=== PATIENT | female | born 1995 | race Two or more races ===

== ENCOUNTER 2021-03-03 08:00 | Outpatient (CLI) | payer OTHER | END 2021-03-03 08:30 | disposition home or self-care (01) | LOC: PPH VACUNA 08:00 | PROVIDERS: ATTEND Emergency Medicine Pediatric Emergency Medicine | DX: Z23 Encounter for immunization (principal) ==

== ENCOUNTER 2022-06-11 11:09 | Emergency (ER) | payer OTHER ==
[~2022-06-11] VITALS: Ht 149.9 cm; Wt 57.6 kg
== END 2022-06-11 14:42 | disposition home or self-care (01) ==
LOC: ER 11:09
DX: M54.2 Cervicalgia (principal); V49.9XXA Car occupant (driver) (passenger) injured in unspecified traffic accident, initial encounter; Y92.413 State road as the place of occurrence of the external cause; Z91.018 Allergy to other foods

== ENCOUNTER → 2023-09-30 09:16 | Outpatient (CLI) | payer OTHER | END | disposition home or self-care (01) | LOC: PRENATAL 09:16 | PROVIDERS: ATTEND Obstetrics & Gynecology Maternal & Fetal Medicine | DX: O36.80X0 Pregnancy with inconclusive fetal viability, not applicable or unspecified (principal); Z36.82 Encounter for antenatal screening for nuchal translucency ==

== ENCOUNTER → 2023-11-12 08:04 | Outpatient (CLI) | payer OTHER | END | disposition home or self-care (01) | LOC: PRENATAL 08:04 | PROVIDERS: ATTEND Obstetrics & Gynecology Maternal & Fetal Medicine | DX: O35.3XX0 Maternal care for (suspected) damage to fetus from viral disease in mother, not applicable or unspecified (principal); O44.00 Complete placenta previa NOS or without hemorrhage, unspecified trimester; Z3A.19 19 weeks gestation of pregnancy ==

== ENCOUNTER → 2024-02-10 09:06 | Outpatient (CLI) | payer OTHER | END | disposition home or self-care (01) | LOC: PRENATAL 09:06 | PROVIDERS: ATTEND Obstetrics & Gynecology Maternal & Fetal Medicine | DX: O26.849 Uterine size-date discrepancy, unspecified trimester (principal); O36.8199 Decreased fetal movements, unspecified trimester, other fetus; Z3A.32 32 weeks gestation of pregnancy ==

== ENCOUNTER 2024-03-24 03:50 | Inpatient (IN) | payer OTHER ==
[~2024-03-24] VITALS: Ht 149.9 cm; Wt 2.7 kg
[2024-03-24 03:37] VITALS: BP 122/76
[2024-03-24] MEDS ORDERED: AMPICILLIN SODIUM 2,000 MG VIAL IV ONE (04:00)
[2024-03-24] MEDS ORDERED: AMPICILLIN SODIUM 1,000 MG VIAL IV SCH (04:00)
[2024-03-24] MEDS ORDERED: RINGERS SOLUTION,LACTATED 1,000 ML IV SCH ×2 (04:00→18:00)
[2024-03-24 04:33] LABS: HEMATOCRIT 35.5 % (36.0-45.00); HEMOGLOBIN 12.1 g/dL (12.0-15.00); MEAN CORPUSCULAR HEMOGLOBIN 29.6 pg (27.00-32.0); PLATELET COUNT 277 K/uL (150-450); RED BLOOD COUNT 4.08 M/uL (4.00-6.00); RED CELL DISTRIBUTION WIDTH 14.3 % (11.5-14.5)
[2024-03-24 04:35] LABS: URINE CAST 13.98 uL (0.0-1.40); URINE EPITHELIAL CELLS 107.6 uL (0.0-38.8); URINE RBC 1635.9 uL (0.0-20.8); URINE WBC 2005.4 uL (0.0-23.2)
[2024-03-24 04:37] LABS: URINE APPEARANCE Turbid; URINE BILIRRUBIN Negative (NEGATIVE); URINE BLOOD Large; URINE COLOR Yellow; URINE GLUCOSE Negative (NEGATIVE); URINE KETONE Negative (NEGATIVE); URINE LEUKOCYTE Large; URINE NITRATE Negative; URINE UROBILINOGEN 0.2 E.U./dl
[2024-03-24] MEDS ORDERED: PRENATAL TABLE1 EAC4 PO (04:45)
[2024-03-24 04:49] LABS: INR < 0.93; PARTIAL THROMBOPLASTIN TIME 23.9 SECONDS (22.0-34.0); PROTHROMBIN TIME 9.8 SECONDS (9.0-11.5); URINE BACTERIA > 9821.5 uL (0.0-1933); URINE CRYSTALS MODERATE /HPF; URINE PROTEIN 100 (NEGATIVE)
[2024-03-24 04:57] LABS: ALBUMIN 2.8 gm/dL (3.4-5.0); BILIRUBIN TOTAL 0.35 mg/dL (0.3-1.2); CALCIUM 9.1 mg/dL (8.5-10.1); CREATININE SERUM 0.63 mg/dL (0.55-1.02); GFR 113.35; GLOBULINA 3.6 G/DL (2.4-3.5); POTASSIUM 4.43 mEq/L (3.5-5.1); TOTAL PROTEIN 6.4 gm/dL (6.4-8.2)
[2024-03-24 07:39] VITALS: BP 121/74
[2024-03-24] MEDS ORDERED: MISOPROSTOL 25 MCG/4 ML GEL.W.APPL ONE (07:40)
[2024-03-24] MEDS ORDERED: MORPHINE SULFATE 4 MG/ML CARTRIDGE IV ONE (09:45)
[2024-03-24] MEDS ORDERED: MISOPROSTOL 25 MCG/4 ML GEL.W.APPL VAG ONE (09:45)
[2024-03-24 11:04] VITALS: BP 127/74
[2024-03-24] MEDS ORDERED: OXYTOCIN 500 ML IV SCH (13:45)
[2024-03-24 15:22] VITALS: BP 129/65
[2024-03-24] MEDS ORDERED: CEFAZOLIN SODIUM 1,000 MG VIAL ONE (15:24)
[2024-03-24] MEDS ORDERED: CHLORHEXIDINE GLUCONATE 120 ML BOTTLE TOP ONE ×2 (15:39→16:30)
[2024-03-24] MEDS ORDERED: CEFAZOLIN SODIUM 1,000 MG VIAL IV SCH (16:15)
[2024-03-24] MEDS ORDERED: MORPHINE SULFATE 4 MG/ML CARTRIDGE IV PRN (17:45)
[2024-03-24] MEDS ORDERED: OXYTOCIN 1,000 ML IV SCH (18:00)
[2024-03-24] MEDS ORDERED: SIMETHICONE 125 MG CAPSULE PO SCH (18:00)
[2024-03-24] MEDS ORDERED: ERYTHROMYCIN BASE OPHT 1GM EACH TUBE OP ONE (18:15)
[2024-03-24] MEDS ORDERED: OXYTOCIN 10 UNITS/ML VIAL IV ONE (18:15)
[2024-03-24] MEDS ORDERED: MORPHINE SULFATE 4 MG/ML VIAL IV ONE ×2 (19:20→19:50)
[2024-03-24 21:00] VITALS: BP 122/78
[2024-03-24 21:54] LABS: HEMATOCRIT 33.9 % (36.0-45.00); HEMOGLOBIN 11.4 g/dL (12.0-15.00); MEAN CELL VOLUME 87.1 fL (80.00-100.00); MEAN CORPUSCULAR HEMOGLOBIN 29.4 pg (27.00-32.0); MEAN CORPUSCULAR HGB CONC 33.8 g/dl (32.0-36.0); PLATELET COUNT 249 K/uL (150-450); RED BLOOD COUNT 3.89 M/uL (4.00-6.00); RED CELL DISTRIBUTION WIDTH 13.7 % (11.5-14.5)
[2024-03-25] VITALS: BP 116/57
[2024-03-25 08:49] VITALS: BP 126/77
[2024-03-25] MEDS ORDERED: IBUprofen 800 MG TABLET PO SCH (09:00)
[2024-03-25] MEDS ORDERED: DOCUSATE SODIUM 100MG CAP PO SCH (09:00)
[2024-03-26] VITALS: BP 112/72
[2024-03-26 08:49] VITALS: BP 130/73
[2024-03-26 16:44] VITALS: BP 120/85
[2024-03-26 21:20] VITALS: BP 116/76
[2024-03-27 01:40] VITALS: BP 136/78
[2024-03-27 07:37] VITALS: BP 123/84
== END 2024-03-27 12:35 | disposition home or self-care (01) | DRG 788 ==
LOC: OB/GYN 03:50 → LDR 03:50 → OB/GYN 10:05
PROVIDERS: ADMIT Obstetrics & Gynecology; ATTEND Obstetrics & Gynecology
PROC: 4A1HXCZ Monitoring of Products of Conception, Cardiac Rate, External Approach (ICD-10-PCS; 2024-03-24)
PROC: 3E033VJ Introduction of Other Hormone into Peripheral Vein, Percutaneous Approach (ICD-10-PCS; 2024-03-24)
PROC: 3E0P7VZ Introduction of Hormone into Female Reproductive, Via Natural or Artificial Opening (ICD-10-PCS; 2024-03-24)
PROC: 10D00Z1 Extraction of Products of Conception, Low, Open Approach (ICD-10-PCS; principal; 2024-03-24 19:00)
DX: O61.0 Failed medical induction of labor (principal); O42.02 Full-term premature rupture of membranes, onset of labor within 24 hours of rupture; Z3A.38 38 weeks gestation of pregnancy; Z37.0 Single live birth